=== PATIENT | male | born 1940 | race Caucasian/White ===

== ENCOUNTER 2019-07-29 15:34 | Inpatient (IN) | payer OTHER ==
[~2019-07-29] VITALS: Ht 170.2 cm; Wt 76.7 kg
[~2019-07-29 15:34] MED LIST: FINASTERIDE5 MG PO; HYZAAR 100-251 UDTAB PO; Neurin-Sl Tablet Sl SL; PEPCID20 MG; PEPCID20 MG PO; PLAVIX 75MG PO; PLAVIX75 MG; PLAVIX75 MG PO; PROCARDIA90 MG/BLIS; Proscar PO; SIMVASTATIN40 MG PO; ZOCOR PO; ZOCOR20 MG
--- NOTE | 2019-07-29 15:51 | NUR ---
PTE REFIERE NO PUEDE BHARGAVI ORINAR SE GARTH S/V Y UBICA EN AREA DE OBSERVACION
--- NOTE | 2019-07-29 17:01 | NUR ---
PTE EVALUADO POR EL DR BURRELL QUIEN ORDENA EL [place]. SE ORIENTA SOBRE EL MISMO, LO CUAL REFIERE ENTENDER. SE REALIZAN PRUEBAS DE LABORATORIO MICHAEL ORDEN MEDICA, SE COLOCA ANGULO MICHAEL ORDEN MEDICA Y SIGUIENDO MEDIDAS ASEPTICAS Y ESTERILES. PTE TOLERA PROCEDIMIENTO, ELIMINA APROXIMADAMENTE 50ML DE ORINA CON [place].
[2019-07-30] MEDS ORDERED: LOSARTAN POTAS100 MG (09:16)
[2019-08-03] MEDS ORDERED: CIPRO250 MG PO (13:49)
[2019-08-03] MEDS ORDERED: LOSARTAN POTAS100 MG PO (13:52)
[2019-08-03] MEDS ORDERED: FINASTERIDE5 MG PO (13:52)
[2019-08-03] MEDS ORDERED: SIMVASTATIN40 MG PO (13:52)
[2019-08-03] MEDS ORDERED: PLAVIX75 MG PO (13:52)
== END 2019-08-03 14:18 | disposition home or self-care (01) | DRG 683 ==
LOC: ER 15:34 → MEDJ 20:26
PROVIDERS: ADMIT Internal Medicine
PROC: BW21ZZZ Computerized Tomography (CT Scan) of Abdomen and Pelvis (ICD-10-PCS; principal; 2019-07-29)
PROC: 0T9B70Z Drainage of Bladder with Drainage Device, Via Natural or Artificial Opening (ICD-10-PCS; 2019-07-29)
DX: N17.8 Other acute kidney failure (principal); N39.0 Urinary tract infection, site not specified; I12.9 Hypertensive chronic kidney disease with stage 1 through stage 4 chronic kidney disease, or unspecified chronic kidney disease; N40.0 Benign prostatic hyperplasia without lower urinary tract symptoms; R31.0 Gross hematuria; K40.90 Unilateral inguinal hernia, without obstruction or gangrene, not specified as recurrent; K57.30 Diverticulosis of large intestine without perforation or abscess without bleeding; E86.0 Dehydration; E87.8 Other disorders of electrolyte and fluid balance, not elsewhere classified; E87.6 Hypokalemia; K44.9 Diaphragmatic hernia without obstruction or gangrene; B96.29 Other Escherichia coli [E. coli] as the cause of diseases classified elsewhere; N18.2 Chronic kidney disease, stage 2 (mild); D72.828 Other elevated white blood cell count; Z86.73 Personal history of transient ischemic attack (TIA), and cerebral infarction without residual deficits; Z16.12 Extended spectrum beta lactamase (ESBL) resistance

== ENCOUNTER 2024-10-14 16:00 | Inpatient (IN) | payer OTHER ==
[~2024-10-14] VITALS: Ht 172.7 cm; Wt 81.2 kg
[~2024-10-14 16:00] MED LIST changes: +CIPRO250 MG PO; +LOSARTAN POTAS100 MG; +LOSARTAN POTAS100 MG PO
--- NOTE | 2024-10-14 16:17 | NUR ---
SE RECIBE PTE ALERTA Y ORIENTADO ACOMPANADO DE FAMILIAR LA CUAL REFIERE TRAER A PTE POR INFLAMACION EN [place] DEL LADO DERECHO Y DEBILIDAD EN AMBAS PIERNAS. SE MIDEN S/V A PTE Y SE UBICA.
[2024-10-14] MEDS ORDERED: DEXAMETHASONE SODIUM PHOSPHATE 4 MG/ML VIAL IM STA (19:29)
[2024-10-14] MEDS ORDERED: KETOROLAC TROMETHAMINE 60 MG VIAL IM STA (19:30)
[2024-10-14 19:57] LABS: HEMATOCRIT 40.4 % (39.0-48.0); HEMOGLOBIN 13.4 g/dL (13-16.00); MEAN CORPUSCULAR HEMOGLOBIN 30.1 pg (27.00-32.0); MEAN CORPUSCULAR HGB CONC 33.1 g/dl (32.0-36.0); PLATELET COUNT 249 K/uL (150-450); RED BLOOD COUNT 4.44 M/uL (4.00-6.00); RED CELL DISTRIBUTION WIDTH 19.9 % (11.5-14.5)
--- NOTE | 2024-10-14 20:02 | NUR ---
SE ORIENTA A PTE SOBRE TX MEDICO Y EL MISMO REFIERE ENTENDER. SE ADMINISTRAN MEDICAMENTOS Y SE RECOLECTAN MUESTRAS DE LAB, SE REALIZA EKG Y ES PRESENTADO A LA JOSE MANUEL SHANNON MICHAEL ORDEN MEDICA BAJO MEDIDAS ASEPTICAS.
[2024-10-14 20:18] LABS: ALBUMIN 3.5 gm/dL (3.4-5.0); BILIRUBIN TOTAL 0.41 mg/dL (0.3-1.2); CALCIUM 9.4 mg/dL (8.5-10.1); CREATININE SERUM 1.92 mg/dL (0.70-1.30); GFR 33.37; POTASSIUM 4.14 mEq/L (3.5-5.1); TOTAL PROTEIN 7.5 gm/dL (6.4-8.2)
[2024-10-14 22:10] LABS: INR 1.03; PROTHROMBIN TIME 11.2 SECONDS (9.0-11.5)
[2024-10-14 23:03] LABS: URINE APPEARANCE Clear; URINE BILIRRUBIN Negative (NEGATIVE); URINE BLOOD Negative; URINE COLOR Yellow; URINE GLUCOSE Negative (NEGATIVE); URINE KETONE Trace (NEGATIVE); URINE LEUKOCYTE Moderate; URINE NITRATE Negative
[2024-10-14 23:07] LABS: URINE BACTERIA 177.4 uL (0.0-1933); URINE CAST 1.47 uL (0.0-1.40); URINE RBC 5.7 uL (0.0-20.8)
[2024-10-14 23:47] LABS: URINE PROTEIN 100 (NEGATIVE)
[2024-10-15] MEDS ORDERED: 0.9 % SODIUM CHLORIDE 1,000 ML IV ONE (01:00)
--- NOTE | 2024-10-15 02:54 | NUR ---
PACIENTE ALERTA Y ORIENTADO X3. SE EDUCA A PACIENTE Y FAMILIAR SOBRE PROCESO DE CANALIZAR, REFIEREN ENTENDER. SE EJECUTAN ORDENES BAJO MEDIDAS ASEPTICAS. PENDIENTE A RADHA DE MUESTRAS DE LABORATORIO.
[2024-10-15 06:01] LABS: ALBUMIN 3.1 gm/dL (3.4-5.0); BILIRUBIN TOTAL 0.34 mg/dL (0.3-1.2); CALCIUM 8.8 mg/dL (8.5-10.1); CREATININE SERUM 1.78 mg/dL (0.70-1.30); GFR 36.42; GLOBULINA 3.1 G/DL (2.4-3.5); POTASSIUM 4.66 mEq/L (3.5-5.1); TOTAL PROTEIN 6.2 gm/dL (6.4-8.2)
[2024-10-15] MEDS ORDERED: 0.9 % SODIUM CHLORIDE 1,000 ML IV SCH (11:15)
[2024-10-15] MEDS ORDERED: FAMOTIDINE/PF 20 MG/2 ML VIAL IV SCH (11:21)
[2024-10-15] MEDS ORDERED: MEMANTINE HCL 10 MG TABLET PO SCH (11:22)
[2024-10-15] MEDS ORDERED: IRON FUM,PS/FOLIC/BCOMP,C NO.9 1 CAP CAPSULE PO SCH (11:22)
[2024-10-15] MEDS ORDERED: CEFTRIAXONE SODIUM 1,000 MG in DEXTROSE 5 % IN WATER 100 ML IV SCH (11:23)
[2024-10-15] MEDS ORDERED: ACETAMINOPHEN 500 MG GEL..CAP PO PRN (11:30)
[2024-10-15] MEDS ORDERED: LOSARTAN POTASSIUM 100 MG TABLET PO SCH (12:00)
[2024-10-15] MEDS ORDERED: DONEPEZIL HCL 10 MG TABLET PO SCH (17:00)
[2024-10-15] MEDS ORDERED: SIMVASTATIN 40 MG TABLET PO SCH (17:00)
[2024-10-15] MEDS ORDERED: LORazepam 2 MG/ML VIAL IV ONE (17:45)
[2024-10-15] MEDS ORDERED: FINASTERIDE 5 MG TABLET PO SCH (21:00)
[2024-10-15] MEDS ORDERED: QUETIAPINE FUMARATE 25 MG TABLET PO SCH (21:00)
[2024-10-15 23:40] VITALS: BP 157/77; O2SAT 96
[2024-10-16] VITALS (8 sets, daily range): BP systolic 143–157; BP diastolic 73–77; O2SAT 90–100
[2024-10-16 09:37] LABS: HEMATOCRIT 34.7 % (39.0-48.0); HEMOGLOBIN 11.6 g/dL (13-16.00); MEAN CORPUSCULAR HEMOGLOBIN 30.5 pg (27.00-32.0); MEAN CORPUSCULAR HGB CONC 33.6 g/dl (32.0-36.0); PLATELET COUNT 243 K/uL (150-450); RED BLOOD COUNT 3.81 M/uL (4.00-6.00); RED CELL DISTRIBUTION WIDTH 19.7 % (11.5-14.5)
[2024-10-16 09:49] LABS: PARTIAL THROMBOPLASTIN TIME 24.5 SECONDS (22.0-34.0); PROTHROMBIN TIME 10.9 SECONDS (9.0-11.5)
[2024-10-16 09:50] LABS: ERYTHROCYTE SEDIMENTATION RATE 53 mm/hr
[2024-10-16 10:04] LABS: ALBUMIN 2.7 gm/dL (3.4-5.0); BILIRUBIN TOTAL 0.43 mg/dL (0.3-1.2); CALCIUM 8.4 mg/dL (8.5-10.1); CHOL HDL RATIO 2.1 (0-5.0); CREATININE SERUM 1.48 mg/dL (0.70-1.30); GFR 45.07; GLOBULINA 2.8 G/DL (2.4-3.5); MAGNESIUM 2.1 mg/dL (1.8-2.4); POTASSIUM 4.39 mEq/L (3.5-5.1); PROSTATIC SPECIFIC ANTIGEN 0.773 NG/ML (0.010-4.00); T4 FREE 1.19 NG/ML (0.76-1.46); TOTAL PROTEIN 5.5 gm/dL (6.4-8.2); TSH 2.1 uIU/mL (0.358-3.74)
[2024-10-16 10:07] LABS: C-REACTIVE PROTEIN 10.2 MG/DL (0.00-0.29)
[2024-10-16 14:46] LABS: PH,URINE 5.5 (5.0-8.0); URINE APPEARANCE Clear; URINE BILIRRUBIN Negative (NEGATIVE); URINE BLOOD Moderate; URINE COLOR Yellow; URINE GLUCOSE Negative (NEGATIVE); URINE KETONE Negative (NEGATIVE); URINE LEUKOCYTE Moderate; URINE NITRATE Negative; URINE PROTEIN Trace (NEGATIVE); URINE UROBILINOGEN 0.2 E.U./dl
[2024-10-16 14:50] LABS: URINE BACTERIA 144.4 uL (0.0-1933); URINE CAST 1.91 uL (0.0-1.40); URINE EPITHELIAL CELLS 5.2 uL (0.0-38.8); URINE RBC 118.5 uL (0.0-20.8); URINE WBC 244.7 uL (0.0-23.2)
[2024-10-16] MEDS ORDERED: QUETIAPINE FUMARATE 25 MG TABLET PO SCH (21:00)
[2024-10-17] VITALS (9 sets, daily range): BP systolic 148–162; BP diastolic 80–84; O2SAT 96–100
[2024-10-17] MEDS ORDERED: LORazepam 2 MG/ML VIAL IV PRN (07:18)
[2024-10-17 21:47] LABS: URINE PROT QUANT 24HR 44.9 MG/DL
[2024-10-17 21:49] LABS: URINE PROT QUANT 24 HR 628.6 MG/24HR (42-225)
[2024-10-18] VITALS (9 sets, daily range): BP systolic 156–174; BP diastolic 74–85; O2SAT 89–100
[2024-10-19 00:49] VITALS: BP 145/72; O2SAT 97
[2024-10-19 02:00] VITALS: O2SAT 91
[2024-10-19 09:26] VITALS: O2SAT 100
[2024-10-19 09:30] VITALS: BP 148/71; O2SAT 100
[2024-10-19 14:14] VITALS: O2SAT 96
[2024-10-19 16:03] VITALS: BP 168/72; O2SAT 100
[2024-10-19] MEDS ORDERED: INTESTINEX680 M2 PO (16:42)
[2024-10-19] MEDS ORDERED: QUETIAPINE FUMA25 MG PO (16:42)
[2024-10-19] MEDS ORDERED: AMOX1TAB5 PO (16:42)
== END 2024-10-19 17:24 | disposition home or self-care (01) | DRG 69 ==
LOC: ER 16:02 → SEC-K 10-15 11:47 → MEDJ 10-15 11:47 → MEDI 10-17 12:37
PROVIDERS: General Practice; ADMIT Internal Medicine; ATTEND Internal Medicine
PROC: BW28ZZZ Computerized Tomography (CT Scan) of Head (ICD-10-PCS; principal; 2024-10-14)
PROC: BW2FZZZ Computerized Tomography (CT Scan) of Neck (ICD-10-PCS; 2024-10-15)
PROC: B030ZZZ Magnetic Resonance Imaging (MRI) of Brain (ICD-10-PCS; 2024-10-15)
PROC: B246ZZZ Ultrasonography of Right and Left Heart (ICD-10-PCS; 2024-10-15)
PROC: B345ZZZ Ultrasonography of Bilateral Common Carotid Arteries (ICD-10-PCS; 2024-10-15)
PROC: 0HQ0XZZ Repair Scalp Skin, External Approach (ICD-10-PCS; 2024-10-15)
PROC: 4A12X4Z Monitoring of Cardiac Electrical Activity, External Approach (ICD-10-PCS; 2024-10-16)
DX: G45.8 Other transient cerebral ischemic attacks and related syndromes (principal); N17.8 Other acute kidney failure; L03.221 Cellulitis of neck; I10 Essential (primary) hypertension; G30.9 Alzheimer's disease, unspecified; F02.80 Dementia in other diseases classified elsewhere, unspecified severity, without behavioral disturbance, psychotic disturbance, mood disturbance, and anxiety; S01.01XA Laceration without foreign body of scalp, initial encounter; W18.09XA Striking against other object with subsequent fall, initial encounter; Y93.84 Activity, sleeping; Y92.092 Bedroom in other non-institutional residence as the place of occurrence of the external cause; E86.0 Dehydration; N18.30 Chronic kidney disease, stage 3 unspecified; R41.82 Altered mental status, unspecified; E78.5 Hyperlipidemia, unspecified; R00.0 Tachycardia, unspecified; Z86.73 Personal history of transient ischemic attack (TIA), and cerebral infarction without residual deficits; Z72.0 Tobacco use; N40.0 Benign prostatic hyperplasia without lower urinary tract symptoms
CPT/HCPCS: 70544